=== PATIENT | male | born 1935 | race Caucasian/White ===

== ENCOUNTER → 2019-12-11 | Outpatient (CLI) | payer OTHER | END | disposition home or self-care (01) | LOC: LAB SHORT 07:50 → PLD 07:50 | DX: L57.0 Actinic keratosis (principal) | CPT/HCPCS: 88305 ==

== ENCOUNTER 2020-11-27 04:22 | Emergency (ER) | payer OTHER ==
[~2020-11-27] VITALS: Ht 167.6 cm; Wt 77.1 kg
[2020-11-27 05:13] LABS: BASOPHILS ABSOLUTE AUTO 0.04 K/mm3 (0.00-0.23); BASOPHILS PERCENT AUTO 1 % (0-2); EOSINOPHILS ABSOLUTE AUTO 0.19 K/mm3 (0.00-0.68); EOSINOPHILS PERCENT AUTO 4 % (0-6); Hematocrit 40.6 % (37.0-53.0); Hemoglobin 13.7 g/dL (13.5-17.5); IMMATURE GRAN ABSOLUTE AUTO 0.01 K/mm3 (0.00-0.10); IMMATURE GRAN PERCENT AUTO 0 % (0-1); LYMPHOCYTES ABSOLUTE AUTO 1.45 K/mm3 (0.84-5.20); LYMPHOCYTES PERCENT AUTO 27 % (21-46); MONOCYTES ABSOLUTE AUTO 0.43 K/mm3 (0.16-1.47); MONOCYTES PERCENT AUTO 8 % (4-13); Mean Corpuscular HGB 30.3 pg (26.0-34.0); Mean Corpuscular HGB Conc 33.7 g/dL (31.5-36.5); Mean Corpuscular Volume 90 fL (80-100); Mean Platelet Volume 10.1 fL (9.1-12.4); NEUTROPHILS ABSOLUTE AUTO 3.25 K/mm3 (1.96-9.15); NEUTROPHILS PERCENT AUTO 61 % (41-73); Platelet Count 243 K/mm3 (150-400); RDW Coefficient Variation 13.9 % (11.7-14.2); RDW Standard Deviation 44.5 fL (35.1-46.3); Red Blood Cell Count 4.52 M/mm3 (4.30-5.90); White Blood Cell Count 5.37 K/mm3 (4.00-11.30)
[2020-11-27 05:23] LABS: Alanine Aminotransfer (ALT/SGP 27 U/L (12-78); Albumin, Blood 3.8 g/dL (3.4-5.0); Albumin/Globulin Ratio 1.2 (0.8-1.8); Alk Phos 62 U/L (50-136); Anion Gap 5 mmol/L (6-16); Aspartate Aminotrans (AST/SGOT 26 U/L (12-37); Bilirubin, Total 0.4 mg/dL (0.1-1.0); Blood Urea Nitrogen 21 mg/dL (8-24); Bun/Creatinine Ratio 22.6 (12.0-20.0); CO2, Blood 26 mmol/L (21-32); Chloride, Blood 107 mmol/L (98-108); Creatinine, Blood 0.93 mg/dL (0.60-1.20); Globulin, Blood 3.2 g/dL (2.2-4.0); Glomerular Filtration Rate >60 (60-); Glucose, Blood 133 mg/dL (70-99); Potassium, Blood 3.7 mmol/L (3.5-5.5); Sodium, Blood 138 mmol/L (136-145)
[2020-11-27 05:51] LABS: Source, Urine Clean Catch
[2020-11-27 06:05] LABS: Bilirubin, Urine Neg (Neg); Blood, Urine 5+ (Neg); Glucose Qualitative, Urine Neg (Neg); Ketones, Urine Neg (Neg); Leukocyte Esterase, Urine Neg (Neg); Nitrite, Urine Neg (Neg); Protein, Urine 1+ (Neg); Urobilinogen, Urine NORM (Normal)
[2020-11-27 06:22] LABS: Appearance, Urine Hazy (Clear); Color, Urine Yellow (P-Yellow)
[2020-11-27 06:23] LABS: Bacteria Not Seen /hpf; Squamous Epithelial Cells Rare /hpf (Few); White Blood Cells, Urine Not Seen /hpf (0-5)
[2020-11-27] MEDS ORDERED: TAMS.4ER PO (07:37)
== END 2020-11-27 07:57 | disposition home or self-care (01) ==
LOC: ER 04:22
PROVIDERS: Emergency Medicine
DX: N13.2 Hydronephrosis with renal and ureteral calculous obstruction (principal)
CPT/HCPCS: 36415; 74177; 80053; 81001; 85025; 99284-25; Q9967

== ENCOUNTER → 2021-07-13 | Outpatient (CLI) | payer OTHER ==
[~2021-07-13] MED LIST: TAMS.4ER PO
[2021-07-15 09:56] LABS: Stool Occult Bld Immuno 1 Negative (NEGATIVE)
== END | disposition home or self-care (01) ==
LOC: LAB 09:00 → LAB SHORT 09:00
PROVIDERS: Family Medicine
DX: Z12.11 Encounter for screening for malignant neoplasm of colon (principal)
CPT/HCPCS: G0328

== ENCOUNTER → 2022-07-01 | Outpatient (CLI) | payer OTHER | END | disposition home or self-care (01) | LOC: LAB SHORT 07:52 → LAB 07:52 | DX: L72.0 Epidermal cyst (principal) | CPT/HCPCS: 88304 ==

== ENCOUNTER 2025-03-14 06:12 | Day surgery (SDC) | payer OTHER ==
[~2025-03-14] VITALS: Ht 162.6 cm; Wt 74.0 kg
[2025-03-14] VITALS (10 sets, daily range): BP systolic 94–116; BP diastolic 60–75
[~2025-03-14 06:12] MED LIST changes: +LORA10ER PO; +MULTIPLE VITAM1 EACH PO
[2025-03-14] MEDS ORDERED: Heparin Sodium 1000 Units/ML 10ML MDV ONE (06:34)
[2025-03-14] MEDS ORDERED: NS 250 ML IV ONE (06:34)
[2025-03-14] MEDS ORDERED: NS 1,000 ML IV ONE ×2 (06:34→07:26)
[2025-03-14] MEDS ORDERED: Verapamil HCL 2.5 MG/ML 2ML Injection ONE (06:34)
[2025-03-14] MEDS ORDERED: Nitroglycerin 2 MG/20 ML BTL ONE (06:35)
[2025-03-14] MEDS ORDERED: FentaNYL Citrate 50 MCG/ML 2 ML Injection ONE (07:25)
[2025-03-14] MEDS ORDERED: Midazolam HCl 1MG / ML 2ML Vial ONE (07:26)
--- NOTE | 2025-03-14 08:05 | NUR ---
ASSUMED CARE OF PT POST PROCEDURE. PT ALERT AND ORIENTED, PLEASENT AND COOPERATIVE; DENIES PAIN. MONITOR SR 60'S, B/P 116/75, SPO2 96 % RA. R RADIAL SITE NO SWELLING/HEMATOMA, TR BAND IN PLACE; RUE: POSITIVE PLEUTH POST TR BAND PLACEMENT.
[2025-03-14] MEDS ORDERED: Aspir 8181 MG PO (10:12)
--- NOTE | 2025-03-14 11:26 | NUR ---
VERBAL AND WRITTEN DISCHARGE INSTRUCTIONS GIVEN TO PATIENT AND PT'S GRANDDAUGHTER WITH CLEAR UNDERSTANDING BY VITALY Byrd RN. PATIENT OOB TO USE RESTROOM AND DRESS; TOLERATED WELL. TR BAND REMOVED AND DRSG PLACED, AREA WNL; W/O HEMATOMA, SWELLING, BLEEDING, OR TENDERNESS. WRIST IMMOBILIZER IN PLACE. PATIENT DISCHARGED IN STABLE CONDITION IN CARE OF GRANDDAUGHTER AT 1120. PATIENT ESCORTED OUT VIA W/C.
== END 2025-03-14 11:20 | disposition home or self-care (01) ==
LOC: MHTC 06:12
DX: I35.0 Nonrheumatic aortic (valve) stenosis (principal); I25.82 Chronic total occlusion of coronary artery; I25.10 Atherosclerotic heart disease of native coronary artery without angina pectoris
CPT/HCPCS: 76937; 93454; 99152; C1769; C1887; C1894; J1644; J2250; J3010; J7030; J7050; Q9967